=== PATIENT | male | born 1965 | race Caucasian/White ===

== ENCOUNTER 2020-12-03 10:02 | Emergency (ER) | payer SELFPAY ==
--- NOTE | ~2020-12-03 | XR_ITS ---
EXAMINATION: XR KNEE, RIGHT CLINICAL INFORMATION: Pain. Injury. COMPARISON: None TECHNIQUE: Four views of the right knee. FINDINGS: Bone alignment is normal. No fracture or dislocation is seen. There is a small osteophyte at the patellofemoral joint. Joint spaces are otherwise normal. There is a large joint effusion. XR/XR knee RT 4V IMPRESSION: Large joint effusion. No fracture seen.
[2020-12-03 10:54] VITALS: PULSE 79; RESP 16; TEMP 36.1; O2SAT 97; BMI 30.7
--- NOTE | 2020-12-03 11:12 | ED.LOWEXIN ---
HPI - Extremity Injury (Lower) General Chief Complaint: Extremity Injury, Lower Stated Complaint: rt knee pain Time Seen by Provider: 12/03/20 11:12 History of Present Illness HPI Narrative: Patient complains of right knee pain after twisting it when stepping off a truck carrying heavy weight at work, no other injury, no neck pain no back pain no numbness weakness or tingling Related Data Previous Rx's Medication Instructions Recorded ibuprofen 600 mg PO Q6H PRN #20 tab 12/03/20 Allergies Allergy/AdvReac Type Severity Reaction Status Date / Time No Known Allergies Allergy Unverified 04/11/20 15:22 Review of Systems Review of Systems: Positive for right knee pain after injury Negatives are no headache no head injury no neck pain no numbness weakness or tingling no back pain no chest pain no lacerations Yes all other systems are reviewed and are negative [facility] Past Medical History Source: nursing notes reviewed Medical History (Updated 12/04/20 @ 00:01 by Daniella Linton) Hernia, inguinal Social History Social History Advance Directives: No Advance Directives Information Provided: No Physical Exam Vital Signs: Vital Signs: Last Vital Signs Temp 97 F 12/03/20 10:54 Pulse 79 12/03/20 10:54 Resp 16 12/03/20 10:54 Pulse Ox 97 12/03/20 10:54 Body Mass Index 30.7 General appearance no acute distress Head is normocephalic atraumatic Neck supple nontender Respiratory no acute distress The back full range of motion nontender Extremities the right knee had some swelling it had pain and restricted range of motion on flexion it did extend to 180 degrees there is no redness or warmth no obvious large effusion, it is neurovascular intact distal there was tenderness at the joint line the patient could straight leg raise, and there was no obvious ligamentous laxity, Other extremities normal Skin no lacerations Neuro no gross motor or sensory deficit Course Course Course Narrative: X-ray showed a joint effusion but no bony abnormality and patient is discharged to follow with [facility] an orthopedist for work-related knee injury Discharge Plan Discharge Clinical Impression: Right knee sprain, Effusion of knee joint right Patient Disposition: Home, Self-Care Additional Instructions: X-ray showed fluid in the knee joint which can happen after a cartilage injury or for many other reasons Follow with orthopedist, or [facility] for work related injury You may need a referral from the work connection so that it is covered by workman's Comp Return any concerns Prescriptions: New ibuprofen 600 mg tablet 600 mg PO Q6H PRN (Reason: pain) Qty: 20 RF: 0 Referrals: [facility] [Provider Group] - 2 days (Knee injury at work) Lee Ann Lassiter MD [Physician] - 2 days (Knee injury at work) Stand Alone Forms: Work/School Release Interventions: ED Discharge Assessment Last Done: 12/03/20 11:47 Discharge Date/Time: 12/03/20 11:47
== END 2020-12-03 11:47 | disposition home or self-care (01) ==
PROVIDERS: Emergency Provider Emergency Medicine
DX: S83.91XA Sprain of unspecified site of right knee, initial encounter (principal); X50.1XXA Overexertion from prolonged static or awkward postures, initial encounter; Y93.89 Activity, other specified; Y92.812 Truck as the place of occurrence of the external cause; Y99.0 Civilian activity done for income or pay
CPT/HCPCS: 73564; 99282; 99283; 99284

== ENCOUNTER 2021-06-05 12:11 | Emergency (ER) | payer OTHER, SELFPAY ==
[2021-06-05 12:24] VITALS: PULSE 83; RESP 18; TEMP 36.8; O2SAT 97; BMI 31.6
--- NOTE | 2021-06-05 13:42 | ED.GENADULT ---
HPI - General Adult General Chief complaint: General Medical Stated complaint: rash Time Seen by Provider: 06/05/21 13:42 Source: patient Limitations: no limitations History of Present Illness HPI narrative: Patient presents with a blistering red rash to the left lateral aspect of his chest. Patient states started greater than 3 days ago with some burning sensation and slight pain. Patient states it is slightly itchy. Patient states he has never had shingles in the past. Patient does have a history of chickenpox as a child. Patient denies fever chills shortness of breath or other complaints at this time. Patient states he also has a history of rosacea which he uses metronidazole cream for. No other complaints this time Related Data Previous Rx's Medication Instructions Recorded ibuprofen 600 mg tablet 600 mg PO Q6H PRN #20 tab 12/03/20 metronidazole 1 % topical gel 1 appl TOPICAL DAILY PRN #60 g 06/05/21 valacyclovir 1 gram tablet 1,000 mg PO TID 7 Days #21 tab 06/05/21 Allergies Allergy/AdvReac Type Severity Reaction Status Date / Time No Known Allergies Allergy Verified 06/05/21 12:23 Review of Systems Constitutional: Constitutional: Denies chills and Denies fever(s) Cardiovascular: Cardiovascular: Denies chest pain and Denies dyspnea Respiratory: Respiratory: Denies dyspnea Gastrointestinal: Gastrointestinal: Denies nausea and Denies vomiting Musculoskeletal: Musculoskeletal: Denies back pain Integumentary/Breasts: Comments: Left lateral chest rash blistering Endocrine: Endocrine: Reports as per HPI Hematologic/Lymphatic: Hematologic/Lymphatic: Reports no additional hematologic/lymphatic complaints [facility] Past Medical History Medical History Hernia, inguinal Rosacea Social History Social History Advance Directives: No Advance Directives Information Provided: No Physical Exam Vital Signs: Vital Signs: Last Vital Signs Temp 98.2 F 06/05/21 12:24 Pulse 83 06/05/21 12:24 Resp 18 06/05/21 12:24 Pulse Ox 97 06/05/21 12:24 Body Mass Index 31.6 vital signs have been reviewed as normal and appeared to be correct. Blood pressure normal. Heart rate normal. Respiration rate normal. Temperature normal. Oxygen saturation normal. Appearance: Alert. Oriented X3. No acute distress. Head: Normal external exam. Normocephalic. Atraumatic. Eyes: PERRLA. EOMI. Conjunctiva and sclera normal. Eyelids normal. ENT: Pharynx normal. Uvula midline. Moist mucous membranes. Neck: Soft full range of motion, no JVD CVS: Heart regular rate and rhythm no murmurs and rubs Respiratory: Breath sounds are clear to auscultation bilaterally. No accessory muscle use noted. Abdomen: Soft nontender no rebound or guarding positive bowel sounds Back: Full range of motion noted. Skin: Left-sided T8-T9 dermatome on obvious zoster rash noted Extremities: No lower extremity edema. Extremities exhibit normal range of motion. Extremities nontender. Neuro: Oriented X 3. No motor deficit. No sensory deficit. Reflexes normal. Course Course Course Narrative: Contact dermatitis Zoster Cellulitis Viral syndrome Patient's symptoms are consistent with herpes zoster in the T8-9 dermatome on the left side. Greater than 72 hours since onset of symptoms will treat with valacyclovir at this time. Patient also requesting a refill for his metronidazole gel that he uses for rosacea Discharge Plan Discharge Clinical Impression: Herpes zoster Qualifiers: Herpes zoster complications: without complications Qualified Code(s): B02.9 - Zoster without complications Patient Disposition: Home, Self-Care Instructions: Shingles (ED) Prescriptions: New valacyclovir 1 gram tablet 1,000 mg PO TID 7 Days Qty: 21 RF: 0 metronidazole 1 % gel 1 appl topical DAILY PRN (Reason: rash) Qty: 60 RF: 0 No Action ibuprofen 600 mg tablet 600 mg PO Q6H PRN (Reason: pain) Qty: 20 RF: 0
== END 2021-06-05 14:12 | disposition home or self-care (01) ==
PROVIDERS: Emergency Provider Emergency Medicine
DX: B02.9 Zoster without complications (principal)
CPT/HCPCS: 99283

== ENCOUNTER 2023-10-03 23:21 | Emergency (ER) | payer BC, SELFPAY ==
--- NOTE | 2023-10-03 | ECG_ITS ---
Test Reason : CHEST PAIN Blood Pressure : / mmHG Vent. Rate : 116 BPM Atrial Rate : 116 BPM P-R Int : 130 ms QRS Dur : 096 ms QT Int : 330 ms P-R-T Axes : 040 -29 044 degrees QTc Int : 458 ms Sinus tachycardia Nonspecific ST abnormality Abnormal ECG When compared with ECG of 21-JUN-2006 09:02, Vent. rate has increased BY 41 BPM Referred By: Generic ED Physician Electronically Signed By:VICKI MUNOZ MD
--- NOTE | ~2023-10-03 | XR_ITS ---
EXAMINATION: XR CHEST CLINICAL INFORMATION: Shortness of breath COMPARISON: 07/24/2012 TECHNIQUE: Frontal view of the chest was obtained. FINDINGS: The lungs are hypoinflated with bronchovascular crowding limiting evaluation of the lung bases. No definite consolidation is seen in this setting. No evidence of pneumothorax or significant pleural effusion. Cardiomediastinal silhouette appears grossly unremarkable in the setting of low lung volumes. Degenerative changes are noted in the spine. XR/XR chest 1V IMPRESSION: Low lung volumes. No definite consolidation; mild central vascular congestion cannot be excluded.
[2023-10-03 23:35] VITALS: BP 140/103; BP 148/87; PULSE 101; PULSE 117; RESP 16; O2SAT 90; O2SAT 96; BMI 31.6
--- NOTE | 2023-10-03 23:37 | ED_ITS ---
HPI - Medical Clearance General Chief complaint: General Medical Stated complaint: n/v diaphoretic, tachy SOB Time Seen by Provider: 10/03/23 23:26 Source: patient and EMS Mode of arrival: EMS Limitations: no limitations History of Present Illness HPI Narrative: Patient comes to the emergency room via ambulance complaining of nausea and generalized malaise. Patient denies headache, chest pain. Initially, according to the patient he called for shortness of breath. At this time, patient has no shortness of breath. Patient denies any abdominal pain. Patient states that he has generalized malaise. Related Information Previous Rx's Medication Instructions Recorded ibuprofen 600 mg tablet 600 mg PO Q6H PRN pain #20 tabs 12/03/20 metronidazole 1 % topical gel 1 appl topical DAILY PRN rash #60 06/05/21 grams valacyclovir 1 gram tablet 1,000 mg PO TID 7 days #21 tabs 06/05/21 ibuprofen 600 mg tablet 600 mg PO TID PRN fever or pain 10/04/23 #14 tabs ondansetron HCl 4 mg tablet 4 mg PO Q6H PRN nausea and 10/04/23 vomiting #10 tabs Allergies Allergy/AdvReac Type Severity Reaction Status Date / Time No Known Allergies Allergy Verified 10/03/23 23:59 Review of Systems 2 Review of Systems: Constitutional : No Weight loss, No Fever, No Chills, No Night Sweats, complaining of generalized malaise ENT/Mouth : No Hearing loss, No Ear Pain, No Nasal Congestion, No Sinus Pain, No Hoarseness, No sore throat, No Rhinorrhea, No Swallowing Difficulty Eyes: No Eye Pain, No Swelling, No Redness, No Foreign Body, No Discharge, No Vision Changes Cardiovascular : No Chest Pain, complaining of shortness of breath that is now resolved without any medication., No Dyspnea on Exertion, No Orthopnea, No Edema, No Palpitations Respiratory : No Cough, No Sputum, No Wheezing, No Smoke Exposure, No Dyspnea Gastrointestinal : No Nausea, No Vomiting, No Diarrhea, No Constipation, No abdominal Pain, No Hematochezia, No Melena Genitourinary : no irregular bleeding, No Dysuria, No Urinary Frequency, No Hematuria, No Urinary Incontinence, No Urgency, No Flank Pain, No Urinary Flow Changes, No Hesitancy Musculoskeletal : No joint pain, No Myalgias, No Joint Swelling Skin : No Skin Lesions, No rash Neuro : No Weakness, No Numbness, No Paresthesias, No Loss of Consciousness, No Dizziness, No Headache Psych : No Anxiety/Panic, No Depression, No SI/HI/AH/VH, No Social Issues, Heme/Lymph: No Bruising, No Bleeding,No Lymphadenopathy Endocrine : No Polyuria, No Polydipsia, No Temperature Intolerance [facility] Past Medical History Medical History Rosacea Hernia, inguinal Social History Social History Smoked in Last 30 Days: No Use of substances other than those prescribed or required for medical reasons: No Advance Directives: No Advance Directives Information Provided: No Physical Exam 2 Vital Signs: Vital Signs: Last Vital Signs Pulse 101 H 10/03/23 23:35 Resp 16 10/03/23 23:35 BP 140/103 H 10/03/23 23:35 Pulse Ox 96 10/03/23 23:35 BMI result Body Mass Index 31.6 Const: Other: Appearance: Alert. Oriented X3. Seems very anxious Eyes: Pupils equal, round and reactive to light. ENT: Pharynx normal. Neck: Normal inspection. Neck supple. No lymph nodes noted. No crepitus CVS: Normal heart rate and rhythm. Pulses normal. Normal S1 and S2 Respiratory: No respiratory distress. Breath sounds normal. No Wheezing. No rales hyperventilating, oxygen saturation 96% on room air Abdomen: Soft and nontender. No rigidity. No distention. Skin: Skin warm and dry. Normal skin color. Normal skin turgor. Extremities: No lower extremity edema. No Lacerations. No Rash Neuro: Oriented X 3. No motor deficit. No sensory deficit. Moving all extremities. No slurred speech. CN 2 through 12 grossly intact Psych: calm, cooperative, very anxious Course Course Course Narrative: -initially when patient came in, oxygen saturation was read as 90%. However, patient was moving a lot, twisting and turning in his bed. It was bad waveform. Once patient has settled down, patient's oxygen saturation is 96% on room air, respiratory rate 21, normal blood pressure and heart rate. -all of patient's labs and imaging pending -patient receiving IV fluids, Zofran Medications Administered Discontinued Medications Generic Name Dose Route Start Last Admin Trade Name Meseret PRN Reason Stop Dose Admin Sodium Chloride 1,000 mls @ 999 mls/hr 10/03/23 23:34 10/04/23 00:45 Ns IVCONT 10/04/23 00:34 Infused .Q1H1M ONE Infusion Ondansetron HCl 4 mg 10/03/23 23:34 10/03/23 23:45 Ondansetron Hcl 4 Mg/2 Ml Vial IVPUSH 10/03/23 23:35 4 mg ONCE ONE Administration Medical Decision Making Medical Decision Making [facility] Narrative: My interpretation self lab, hematology shows a white blood cell count of 15, likely reactive leukocytosis. Chemistries at baseline, troponin negative, lipase negative, EtOH negative. -after IV fluids and Zofran, patient feeling much better, urinalysis negative for UTI or drugs -patient likely having a viral syndrome -at this time, patient's vitals completely stable and patient feeling much better Differential Diagnosis Differential Diagnoses: The differential diagnosis associated with the presentation includes (Viral syndrome, COVID, influenza, RSV, UTI) Admission/Observation Consideration of admission/observation: Escalation of care including admission/observation considered (Urine patient's initial presentation, admission was considered) Lab Data [facility] Lab Attestation statement: I reviewed the patient's lab results. 10/03/23 23:34 10/03/23 23:33 Labs: Lab Results 10/03/23 10/03/23 10/04/23 Range/Units 23:33 23:34 02:11 WBC 15.0 H (4.8-10.8) X10*3/uL RBC 5.92 H (4.60-5.80) X10*6/uL Hgb 16.4 (14.0-18.0) g/dl Hct 48.5 (42.0-52.0) % MCV 81.9 (80.0-98.0) fL MCH 27.7 (27.0-33.0) pg MCHC 33.8 (31.0-36.0) g/dl RDW 13.2 (11.0-16.0) % Plt Count 153 L (160-400) X10*3/uL MPV 11.9 (9.4-12.4) fL Immature Gran % (Auto) 0.5 H (0.0-0.4) % Neut % (Auto) 70.2 (45-73) % Lymph % (Auto) 19.9 L (20-40) % [place] % (Auto) 6.9 (2-11) % Eos % (Auto) 1.9 (0-4) % Baso % (Auto) 0.6 (0-2) % Lymph # (Auto) 3.0 (1.2-4.9) X10*3/uL [place] # (Auto) 1.0 (0.1-1.2) X10*3/uL Eos # (Auto) 0.3 (0.0-0.4) X10*3/uL Baso # (Auto) 0.1 (0.0-0.2) X10*3/uL Abs Immat Gran (auto) 0.08 H (0.00-0.03) X10*3/uL Absolute Neuts (auto) 10.5 H (2.0-8.3) x10*3/uL Absolute Nucleated RBC 0.000 (0.0-0.012) X10*3/uL Nucleated RBC % (auto) 0.0 (0.0-0.2) /100WBC Sodium 143 (135-145) mmol/L Potassium 3.5 (3.3-5.1) mmol/L Chloride 108 (96-108) mmol/L Carbon Dioxide 25 (22-29) mmol/L Anion Gap 14 (12-20) BUN 28 H (9-16) mg/dL Creatinine 1.38 (0.5-1.4) mg/dL Estim Creat Clear Calc 58.1 Estimated GFR 53 Random Glucose 192 H (60-115) mg/dL Calcium 9.2 (8.4-10.2) mg/dL Total Bilirubin 0.3 (0.0-1.0) mg/dL AST 27 (5-37) U/L ALT 45 H (0-40) U/L Alkaline Phosphatase 86 (39-117) U/L Troponin I High Sens 3.2 (<3.5-35.0) ng/L Total Protein 8.1 H (6.5-8.0) g/dL Albumin 4.2 (3.5-5.0) g/dL Lipase 39 (8-78) U/L Urine Color Yellow Urine Appearance Clear Urine pH 7.0 (5.0-9.0) Ur Specific [place] 1.020 (1.005-1.025) Urine Protein Trace (Neg-Trace) mg/dL Urine Glucose (UA) 100 H (Negative) mg/dL Urine Ketones Negative (Negative) mg/dL Urine Blood Negative (Negative) Urine Nitrite Negative (Negative) Ur Leukocyte Esterase Negative (Negative) Urine Opiates Screen Not Detected (Not Detect) Urine Fentanyl Screen Not Detected (Not Detect) Ur Barbiturates Screen Not Detected (Not Detect) Ur Phencyclidine Scrn Not Detected (Not Detect) Ur Amphetamines Screen Not Detected (Not Detect) U Benzodiazepines Scrn Not Detected (Not Detect) Urine Cocaine Screen Not Detected (Not Detect) U Marijuana (THC) Screen Not Detected (Not Detect) Ethyl Alcohol < 10 mg/dL Influenza Type A (PCR) NEGATIVE (Negative) Influenza Type B (PCR) NEGATIVE (Negative) RSV RNA Qual (PCR) NEGATIVE (Negative) SARS-CoV-2 RNA (RT-PCR) NEGATIVE (Negative) Critical Care Time Critical Care Time Critical Care Time: Yes Total Critical Care Time: 60 Attestation: I have personally provided critical care time. Time includes review of lab data, radiology results, discussion with consultants, and monitoring for potential decompensation. Intervention performed as documented. Discharge Plan Discharge Clinical Impression: Acute viral syndrome Patient Disposition: Home, Self-Care Instructions: Viral Syndrome (ED) Additional Instructions: Please follow-up with your primary care physician tomorrow. If you have any worsening or new symptoms, please return to the emergency room or call 911 Prescriptions: New ibuprofen 600 mg tablet 600 mg PO TID PRN (Reason: fever or pain) Qty: 14 0RF ondansetron HCl 4 mg tablet 4 mg PO Q6H PRN (Reason: nausea and vomiting) Qty: 10 0RF No Action ibuprofen 600 mg tablet 600 mg PO Q6H PRN (Reason: pain) Qty: 20 0RF valacyclovir 1 gram tablet 1,000 mg PO TID 7 Days Qty: 21 0RF metronidazole 1 % gel 1 appl topical DAILY PRN (Reason: rash) Qty: 60 0RF Stand Alone Forms: Work/School Release
[2023-10-03] MEDS: 0.9 % Sodium Chloride 1,000 ML 999 ML IVCONT (23:45)
[2023-10-03] MEDS: ondansetron HCL 4 MG/2 ML VIAL IVPUSH (23:45)
[2023-10-03 23:46] LABS: MANUAL DIFF FLAG NO
[2023-10-03 23:48] LABS: Basophils Absolute Auto 0.1 X10*3/uL (0.0-0.2); Basophils Percent Auto 0.6 % (0-2); Eosinophils Absolute Auto 0.3 X10*3/uL (0.0-0.4); Eosinophils Percent Auto 1.9 % (0-4); Hematocrit 48.5 % (42.0-52.0); Hemoglobin 16.4 g/dl (14.0-18.0); Imm Gran Abs Auto 0.08 X10*3/uL (0.00-0.03); Imm Gran Pct Auto 0.5 % (0.0-0.4); Lymphocytes Percent Auto 19.9 % (20-40); Mean Corpuscular HGB Conc 33.8 g/dl (31.0-36.0); Mean Corpuscular Hemoglobin 27.7 pg (27.0-33.0); Mean Corpuscular Volume 81.9 fL (80.0-98.0); Mean Platelet Volume 11.9 fL (9.4-12.4); Monocytes Percent Auto 6.9 % (2-11); Neutrophils Absolute Auto 10.5 x10*3/uL (2.0-8.3); Neutrophils Percent Auto 70.2 % (45-73); Platelet Count 153 X10*3/uL (160-400); Red Blood Count 5.92 X10*6/uL (4.60-5.80); Red Cell Distribution Width 13.2 % (11.0-16.0)
[2023-10-04 00:09] LABS: Troponin-I High Sensitivity 3.2 ng/L (<3.5-35.0)
[2023-10-04 00:10] LABS: Alanine Aminotransferase 45 U/L (0-40); Albumin Level 4.2 g/dL (3.5-5.0); Alkaline Phosphatase 86 U/L (39-117); Anion Gap 14 (12-20); Aspartate Amino Transferase 27 U/L (5-37); Bilirubin Total 0.3 mg/dL (0.0-1.0); Blood Urea Nitrogen 28 mg/dL (9-16); Calcium 9.2 mg/dL (8.4-10.2); Carbon Dioxide 25 mmol/L (22-29); Chloride 108 mmol/L (96-108); Creatinine Clr Calc Pharmacy 58.1; Estimated Glomerular Filt Rate 53; Ethanol < 10 mg/dL; Glucose Random 192 mg/dL (60-115); Lipase 39 U/L (8-78); Potassium 3.5 mmol/L (3.3-5.1); Sodium 143 mmol/L (135-145); Total Protein 8.1 g/dL (6.5-8.0)
[2023-10-04 00:36] LABS: Influenza A PCR NEGATIVE (Negative); Influenza B PCR NEGATIVE (Negative); Resp Syncy Virus RNA Qual PCR NEGATIVE (Negative); SARS COV2 PCR INHOUSE NEGATIVE (Negative)
[2023-10-04 02:17] LABS: Appearance Urine Clear; Color Urine Yellow; Glucose Urine UA 100 mg/dL (Negative); Leukocyte Esterase Urine Negative (Negative); Nitrite Urine Negative (Negative); Urine Blood Negative (Negative); Urine Ketones Negative (Negative); Urine Protein Trace mg/dL (Neg-Trace)
[2023-10-04 02:23] LABS: Amphetamine Screen Urine Not Detected (Not Detect); Barbiturates, Urine Not Detected (Not Detect); Benzodiazepines Screen Urine Not Detected (Not Detect); Cannabinoid Screen Urine Not Detected (Not Detect); Cocaine Screen Urine Not Detected (Not Detect); Fentanyl, urine Not Detected (Not Detect); Opiate Screen Urine Not Detected (Not Detect); Phencyclidine Screen Urine Not Detected (Not Detect)
[2023-10-04 02:39] VITALS: BP 130/69; PULSE 88; RESP 16; TEMP 36.5; O2SAT 99
== END 2023-10-04 02:43 | disposition home or self-care (01) ==
PROVIDERS: Emergency Provider Emergency Medicine
DX: B34.9 Viral infection, unspecified (principal); Z11.52 Encounter for screening for COVID-19; Z20.828 Contact with and (suspected) exposure to other viral communicable diseases
CPT/HCPCS: 0241U; 36415; 71045; 80053; 80307; 81003; 83690; 84484; 85025; 93005; 96361; 96374; 99284; 99285; J2405

== ENCOUNTER → 2023-10-03 23:25 | Outpatient (BNV) | payer SELFPAY | PROVIDERS: Emergency Provider Emergency Medicine; Visit Provider Internal Medicine Cardiovascular Disease | DX: R00.0 Tachycardia, unspecified (principal) | CPT/HCPCS: 93010 ==

== ENCOUNTER 2024-02-11 08:43 | Outpatient (AMB) | payer BC, SELFPAY ==
--- NOTE | 2024-02-11 08:49 | A.OFFPC_ITS ---
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 Intake Note: patient here for new patient visit., Pre Press Proofer Required: No Allergies No Known Allergies Allergy (Verified 02/11/24 09:05) Medication List - Last Reconciled 02/11/24 by William Razo CNP ibuprofen 600 mg PO Q6H PRN metronidazole 1% 1 appl topical DAILY PRN Tobacco use date assessed: 02/11/24 Dental Screening Dental Screen Date: 02/11/24 Did you have a dental visit in the last 12 months?: Yes Did you have a dental problem in the last 6 months where you did not have access to dental care?: No Was dental information given to patient?: Patient has dentist HPI HPI Comments History of Present Illness Details New patient, accompanied by his girlfriend Prior PCP:?He never had a PCP. He was accessing urgent care clinics and ED for medical care Last office visit/CPE: Acute issue(s): Reports urinary urgency and hesitancy for the past 4 years. His symptoms have progressively gotten worse. No burning, pain, or discharge with urination. He endorses adequate hydration On metronidazole cream as needed for rosacea He notes that he generally eats healthy and sleeps well. He does physical exercise routinely PMHx: Rosacea (last outbreak was 5-6 years ago) SurgHx: Left inguinal hernia repair, lipoma removal to mid upper back FHx: Mom: PGF alcohol abuse, liver disease r/t alcohol abuse SocHx: Nonsmoker. Does not drink alcohol. 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 1. Little interest or pleasure in doing things: not at all 2. Feeling down, depressed, or hopeless: not at all 3. Trouble falling or staying asleep, or sleeping too much: not at all 4. Feeling tired or having little energy: not at all 5. Poor appetite or overeating: not at all 6. Feeling bad about yourself - or that you are a failure or have let yourself or your family down: not at all 7. Trouble concentrating on things, such as reading the newspaper or watching television: not at all 8. Moving or speaking so slowly that other people could have noticed. Or the opposite - being so fidgety or restless that you have been moving around a lot more than usual: not at all 9. Thoughts that you would be better off or of hurting yourself in some way: not at all Total score: 0 Depression Screening Interpretation: Negative Depression Screening Done: Yes 78678 - PHQ-9 Billing: Yes Source: Developed by Drs. Chandler Wayne, Margo Cannon, Jeff Valverde and colleagues, with an educational sophia from [employer]. Thrive Questionnaire Date Thrive assessed: 02/11/24 I am a: Patient What is your living situation today?: I have a steady place to live Within the past 12 months, did the food you bought not last and you didn't have the money to get more?: Never true Within the past 12 months, did you worry whether your food would run out before you got money to buy more?: Never true Do you have trouble paying for medicines?: Yes Do you have trouble getting transportation to medical appointments?: No Do you have trouble paying your heating and electricity bill?: No Do you have trouble taking care of your child, family member or friend?: No Do you have trouble with day-to-day activities such as bathing, preparing meals, shopping, managing finances, etc.?: No Are you currently unemployed and looking for a job?: No Are you interested in more education?: No Please select the resources that you would like help with: None Currently or been in a relationship where the following occur: No concerns reported THRIVE Score: 0 AUDIT C Alcohol Use Questionnaire (AUDIT-C) 1. How often do you have a drink containing alcohol?: Never Total Score: 0 DANNY-7 AMB Questionnaire DANNY-7 Date DANNY - 7 assessed: 02/11/24 Feeling nervous, anxious, or on edge: 0 = Not at all Not being able to stop or control worryin = Not at all Worrying too much about different things: 0 = Not at all Trouble relaxin = Not at all Being so restless that it is hard to sit still: 0 = Not at all Becoming easily annoyed or irritable: 0 = Not at all Feeling afraid as if something awful might happen: 0 = Not at all Total DANNY-7 score (0-4 normal; 5-9 mild; 10-14 moderate; 15-21 severe): 0 Source: Developed by Drs. Chandler Wayne, Margo Cannon, Jeff Valverde and colleagues, with an educational sophia from [employer]. DANNY-7 Assessment Billing DANNY-7 Assessment Tool: DANNY-7 Assessment 54588 Review of Systems Const Details: Denies chills, Denies fatigue, Denies fever(s), Denies headache(s) and Denies weakness HEENT Denies change in vision, Denies dizziness, Denies headache(s), Denies hearing loss, Denies nasal congestion, Denies sinus pain, Denies sinus pressure and Denies sore throat Card Denies chest pain, Denies lightheadedness, Denies dyspnea and Denies other (palpitations) Resp Denies cough, Denies dyspnea and Denies wheezing GI Denies abdominal pain, Denies melena, Denies hematochezia, Denies change in bowel habits, Denies dyspepsia and Denies nausea Denies hematuria and Denies dysuria Musc Denies abnormal gait, Denies myalgias, Denies arthralgias, Denies numbness and Denies tingling Skin/Breast Denies rash, Denies unusual bruising and Denies wounds Neuro Denies abnormal gait, Denies dizziness, Denies headache(s), Denies memory loss, Denies numbness, Denies Sensory deficit (Neuro), Denies tingling and Denies weakness Psych Denies anxiety, Denies depression and Denies memory loss Endo Denies cold intolerance, Denies fatigue, Denies heat intolerance, Denies polydipsia and Denies polyuria Dominick/Lymph Denies easy bleeding and Denies easy bruising Aller/Immun Denies wheezing Physical exam (Primary Care) Vital Signs: Last Vital Signs Temp 97.3 F 02/11/24 08:56 Pulse 83 02/11/24 08:56 Resp 16 02/11/24 08:56 BP 128/74 02/11/24 08:56 Pulse Ox 97 02/11/24 08:56 Oxygen Delivery Method Room Air 02/11/24 08:56 BMI result Body Mass Index 33.3 Tobacco/Smoking Status: Tobacco use Status Tobacco use date assessed 02/11/24 02/11/24 08:55 Patient Tobacco Use Status Never used Tobacco 02/11/24 08:55 e-Cigarette/Vaping Use Never Used 02/11/24 08:55 PHQ-9: PHQ-9 Score PHQ-9: Total score 0 02/11/24 09:01 Depression Screening Interpretation: Negative Thrive Assessment: Date of Thrive Assessment Date Thrive assessed 02/11/24 02/11/24 09:01 Currently or been in a relationship where the following occur: No concerns reported Const Other: General: no acute distress, well developed, alert and awake Nutritional Appearance: well nourished Orientation/consciousness: patient oriented x3 HENMT Head: Yes normocephalic and Yes atraumatic Ears: hearing grossly normal bilaterally and TM's normal bilaterally General nose exam: Normal external nose present and Normal nares present Mouth: Normal oral and palatal mucosa present and moist mucous membranes Teeth and gingiva: dentition normal Throat: Yes oropharynx normal Eyes Pupils: Equal, round and reactive pupils present and Pupil accommodation reflex normal EOM: EOMs intact bilaterally Neck Neck: Yes normal visual inspection, Yes no lymphadenopathy and Yes trachea midline Thyroid: Thyroid normal Carotids: no bruits Lymphatic: no lymphadenopathy noted Chest Chest palpation & inspection: normal inspection of the chest Resp Effort & Inspection: normal respiratory effort Auscultation: clear to auscultation bilaterally Cardio Rate: regular rate Rhythm: regular rhythm Heart sounds: S1 normal heart sound present, S2 normal heart sound present, no gallops, no murmurs and no rubs Bruits: no abdominal aortic bruits and no carotid bruits GI Palpation (GI): No Abdominal aortic bruit present, Soft to palpation, nontender, No hepatosplenomegaly present and No Rebound tenderness present Auscultation: normal bowel sounds General: Yes no CVA tenderness Back/Spine/Pelvis Back: no CVA tenderness Cervical Spine: cervical ROM normal and No Cervical spine tenderness Thoracic/Lumbar Spine: thoraco-lumbar ROM normal, No pain with thoraco-lumbar ROM, No thoracic spinal tenderness and No lumbar spinal tenderness Skin General: warm and dry. Normal skin color. Normal skin turgor Lesions: no lesions Rashes: no rashes Trauma: no lacerations or abrasions Wounds: no wounds Nails: normal Neuro General: patient oriented x3, gait normal and CN's II-XI intact bilaterally Cranial nerves: Yes Equal, round and reactive pupils present Cognition (Neuro): normal cognition Gait exam (Neuro): Normal gait present Motor exam (neuro): 5/5 motor strength present throughout Sensory Exam: No Sensory deficit (Neuro) Deep tendon reflexes (DTR's): Right patellar reflex intensity grade: 2+ and Left patellar reflex intensity grade: 2+ Extrem General: Yes normal to inspection, No edema and No calf tenderness Psych Appearance: grossly normal Affect: normal affect Attitude: cooperative Thought process: Normal thought process present Assessment and Plan Assessment & Plan (1) Normal physical examination, routine: Code(s): Z00.00 - Encounter for general adult medical examination without abnormal findings Plan: No significant physical restrictions or limitations noted Healthy diet and routine exercise encouraged Advised to get lab work done and follow-up for telehealth visit in 2 weeks for labs review Return sooner with symptoms or concerns Verbalized understanding and agreed with the treatment plan (2) Urinary urgency: Code(s): R39.15 - Urgency of urination Plan: Urinary urgency and hesitancy x 4 years, progressively gotten worse. No burning, pain, or discharge with urination Likely BPH Will check prostate levels Referred to Urology Follow-up with worsening or new symptoms Verbalized understanding and agreed with the plan (3) Urinary hesitancy: Code(s): R39.11 - Hesitancy of micturition Plan: As above (4) Colon cancer screening: Code(s): Z12.11 - Encounter for screening for malignant neoplasm of colon Plan: He has never had a colonoscopy done Ref[place] [facility] for a colonoscopy (5) Vaccine counseling: Code(s): Z71.85 - Encounter for immunization safety counseling Plan: He has never been vaccinated for shingles Instructed on importance of vaccinations and encouraged to get vaccinated for shingles. He may request the vaccines from his local pharmacy Verbalized understanding and agreed with the plan (6) Laboratory tests ordered as part of a complete physical exam (CPE): Code(s): Z00.00 - Encounter for general adult medical examination without abnormal findings Plan: Fasting labs ordered as part of a complete physical exam. Advised to fast for at least 10 hours before getting labs drawn. May drink water Verbalized understanding and agreed with treatment plan. Orders: Orders Lipid Panel Today Z00.00 - Encounter for general adult medical examination without abnormal findings UA CC w/rflx Micro + Cult Today Z00.00 - Encounter for general adult medical examination without abnormal findings PSA, Ultra Sensitive Today Z00.00 - Encounter for general adult medical examination without abnormal findings Microalbumin, Random (w Creat) Today Z00.00 - Encounter for general adult medical examination without abnormal findings Complete Blood Count Auto Diff Today Z00.00 - Encounter for general adult medical examination without abnormal findings Comprehensive Brent. Panel Fast Today Z00.00 - Encounter for general adult medical examination without abnormal findings TSH reflex Free T4 Today Z00.00 - Encounter for general adult medical examination without abnormal findings Referrals Urology Referral R39.11 - Hesitancy of micturition, R39.15 - Urgency of urination Gastroenterology Referral Z12.11 - Encounter for screening for malignant neoplasm of colon Medications: Discontinued valacyclovir Discontinued Reason: Stopped on Transfer 1,000 mg PO TID 7 days 21 tabs 0RF ibuprofen Discontinued Reason: Patient Completed Course 600 mg PO TID PRN 14 tabs 0RF fever or pain ondansetron HCl Discontinued Reason: Patient no longer taking 4 mg PO Q6H PRN 10 tabs 0RF nausea and vomiting Coding Level of Care Code New Pt Level 4 (33509) New Pt Prev Care 40-64y(78752) Diagnoses Normal physical examination, routine Z00.00 Urinary urgency R39.15 Urinary hesitancy R39.11 Colon cancer screening Z12.11 Vaccine counseling Z71.85 Laboratory tests ordered as part of a complete physical exam (CPE) Z00.00 Additional Codes DANNY-7 Assessment Billing - DANNY-7 Assessment Tool: DANNY-7 Assessment 67309 ([id number])
[2024-02-11 08:56] VITALS: BP 128/74; PULSE 83; RESP 16; TEMP 36.3; O2SAT 97; BMI 33.3
== END 2024-02-11 09:24 | disposition home or self-care (01) ==
PROVIDERS: Visit Provider Nurse Practitioner Family
DX: Z00.00 Encounter for general adult medical examination without abnormal findings (principal); R39.15 Urgency of urination; R39.11 Hesitancy of micturition; Z12.11 Encounter for screening for malignant neoplasm of colon; Z71.85 Encounter for immunization safety counseling
CPT/HCPCS: 99386

== ENCOUNTER 2024-02-12 10:41 | Outpatient (REF) | payer BC, SELFPAY ==
[2024-02-12 11:04] LABS: Basophils Absolute Auto 0.1 X10*3/uL (0.0-0.2); Basophils Percent Auto 0.6 % (0-2); Eosinophils Absolute Auto 0.2 X10*3/uL (0.0-0.4); Eosinophils Percent Auto 2.3 % (0-4); Hematocrit 48.2 % (42.0-52.0); Hemoglobin 16.5 g/dl (14.0-18.0); Imm Gran Abs Auto 0.03 X10*3/uL (0.00-0.03); Imm Gran Pct Auto 0.3 % (0.0-0.4); Lymphocytes Absolute Auto 2.2 X10*3/uL (1.2-4.9); Lymphocytes Percent Auto 23.5 % (20-40); MANUAL DIFF FLAG SCAN; Mean Corpuscular HGB Conc 34.2 g/dl (31.0-36.0); Mean Corpuscular Hemoglobin 28.1 pg (27.0-33.0); Mean Platelet Volume 11.2 fL (9.4-12.4); Monocytes Absolute Auto 0.7 X10*3/uL (0.1-1.2); Monocytes Percent Auto 7.3 % (2-11); Neutrophils Absolute Auto 6.2 x10*3/uL (2.0-8.3); Platelet Count 149 X10*3/uL (160-400); Red Blood Count 5.88 X10*6/uL (4.60-5.80); Red Cell Distribution Width 13.3 % (11.0-16.0); SCAN SMEAR FLAG 1; White Blood Count 9.5 X10*3/uL (4.8-10.8)
[2024-02-12 11:17] LABS: Appearance Urine Clear; Color Urine Yellow; Glucose Urine UA Negative (Negative); Leukocyte Esterase Urine Negative (Negative); Nitrite Urine Negative (Negative); Specific Gravity - Urine 1.025 (1.005-1.025); Urine Blood Negative (Negative); Urine Ketones Negative (Negative); Urine Protein Trace mg/dL (Neg-Trace)
[2024-02-12 11:50] LABS: SLIDE REVIEW VERIFIED
[2024-02-12 11:58] LABS: Creatinine Urine 192.61 mg/dL; Microalbum/Creatinine Ratio Ur 19.2 ug/mg cr (<30)
[2024-02-12 12:02] LABS: Alanine Aminotransferase 36 U/L (0-40); Albumin Level 4.2 g/dL (3.5-5.0); Alkaline Phosphatase 83 U/L (39-117); Anion Gap 12 (12-20); Aspartate Amino Transferase 21 U/L (5-37); Bilirubin Total 0.8 mg/dL (0.0-1.0); Blood Urea Nitrogen 24 mg/dL (9-16); Calcium 9.3 mg/dL (8.4-10.2); Carbon Dioxide 25 mmol/L (22-29); Chloride 108 mmol/L (96-108); Cholesterol 143 mg/dL (<200); Estimated Glomerular Filt Rate > 60; Glucose Fasting 101 mg/dL (60-99); HDL Cholesterol 33 mg/dL (>40); LDL Cholesterol Calculated 93 mg/dL (<100); Potassium 3.9 mmol/L (3.3-5.1); Sodium 141 mmol/L (135-145); Total Protein 7.7 g/dL (6.5-8.0); Triglycerides 89 mg/dL (<150)
[2024-02-12 12:07] LABS: TSH reflex Free T4 0.65 uIU/mL (0.32-4.0)
[2024-02-22 23:38] LABS: PSA, Ultra Sensitive 2.86 ng/mL
== END 2024-02-12 10:42 | disposition home or self-care (01) ==
LOC: HO.LAB 10:41
PROVIDERS: PCP Nurse Practitioner Family; Visit Provider Nurse Practitioner Family
DX: Z00.00 Encounter for general adult medical examination without abnormal findings (principal); Z12.5 Encounter for screening for malignant neoplasm of prostate; Z13.89 Encounter for screening for other disorder
CPT/HCPCS: 36415; 80053; 80061; 81003; 82043; 82570; 84153; 84443; 85025

== ENCOUNTER → 2024-02-25 15:01 | Outpatient (AMB) | payer BC, SELFPAY ==
--- NOTE | 2024-02-25 14:56 | A.OFFPC_ITS ---
Intake Visit Reasons: 2 wks labs review Intake Note: Patient is here to follow up on lab results. 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: Not Required per policy Accompanied by: Self / Same As Patient Allergies No Known Allergies Allergy (Verified 02/25/24 15:02) Tobacco use date assessed: 02/25/24 Dental Screening Dental Screen Date: 02/11/24 HPI HPI Comments History of Present Illness Details 59-year-old male presents for a teleheal th visit for review of recent lab work He offers no complaints and denies acute symptoms at this time [facility] Medical History (Updated 02/25/24 @ 14:58 by William Razo CNP) Rosacea Hernia, inguinal Surgical History (Updated 02/25/24 @ 15:03 by Regina Barrientos Neida) History of hernia surgery Family History (Updated 02/11/24 @ 08:55 by Clarissa Byrd) Paternal Grandfather Alcohol abuse Social History Housing: Apartment Patient Tobacco Use Status: Never used Tobacco e-Cigarette/Vaping Use: Never Used Second Hand Smoke Exposure: No service: No Current occupational status: employed Current occupation: [employer] (formerly [employer] Current occupational exposures/hazards: No Cognitive needs: No Hearing needs: No Vision needs: Yes Questionnaire Thrive Questionnaire Date Thrive assessed: 02/11/24 DANNY-7 AMB Questionnaire DANNY-7 Date DANNY - 7 assessed: 02/11/24 Source: Developed by Drs. Chandler Wayne, Margo Cannon, Jeff Valverde and colleagues, with an educational sophia from [employer]. Review of Systems Const Details: Const Denies chills, Denies fatigue, Denies fever(s), Denies headache(s) and Denies weakness ENT Denies dizziness and Denies headache(s) Card Denies chest pain, Denies lightheadedness, Denies dyspnea and Denies other (Palpitations) Resp Denies cough, Denies dyspnea, Denies wheezing and Denies other ( shortness of breath) GI Denies abdominal pain, Denies melena, Denies hematochezia, Denies change in bowel habits, Denies dyspepsia and Denies nausea Denies hematuria and Denies dysuria Musc Denies abnormal gait, Denies myalgias, Denies arthralgias, Denies numbness and Denies tingling Skin/Breast Denies rash, Denies unusual bruising and Denies wounds Neuro Denies abnormal gait, Denies dizziness, Denies headache(s), Denies memory loss, Denies numbness, Denies Sensory deficit (Neuro), Denies tingling and Denies weakness Psych Denies anxiety, Denies depression, Denies memory loss Endo Denies cold intolerance, Denies fatigue, Denies heat intolerance, Denies polydipsia and Denies polyuria Aller/Immun Denies wheezing Physical exam (Primary Care) Tobacco/Smoking Status: Tobacco use Status Tobacco use date assessed 02/11/24 02/25/24 14:57 Patient Tobacco Use Status Never used Tobacco 02/25/24 14:57 e-Cigarette/Vaping Use Never Used 02/25/24 14:57 Thrive Assessment: Date of Thrive Assessment Date Thrive assessed 02/11/24 02/25/24 14:57 Const Other: Telehealth visit. No physical exam Telehealth Telehealth Telehealth Platform: Telephone Location of provider rendering services: practice address Location of patient: address on file Patient Identification confirmed using: Name, : Yes Telehealth method: voice only Patient verbally consented to treatment: Yes Patient verbally consented to billing insurance company: Yes Patient informed of any privacy concerns related to visit: Yes Assessment and Plan Assessment & Plan (1) Elevated fasting glucose: Code(s): R73.01 - Impaired fasting glucose Plan: Recent fasting glucose is slightly elevated, 101 Will repeat fasting glucose and make changes as needed Advised to get fasting blood work done and follow-up in 2-4 weeks for telehealth visit for labs review Return sooner with symptoms or concerns Verbalized understanding and agreed with treatment plan (2) 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 Plan: Recent HDL level is low, 33 Advised to limit foods high in saturated fat and avoid foods high in trans fat Routine exercise encouraged Verbalized understanding and agreed with the treatment plan (3) Thrombocytopenia: Code(s): D69.6 - Thrombocytopenia, unspecified Plan: CBC is unremarkable except for slightly low platelet count, 149, which is equivocal No bleeding or cardiovascular issues Will monitor periodically Orders: Orders Glucose Fasting Today R73.01 - Impaired fasting glucose Coding Level of Care Code Tele Est Pt Level 3 (30027) Diagnoses Elevated fasting glucose R73.01 Low HDL (under 40) E78.6 Thrombocytopenia D69.6 Time Spent (min) 10
== END ==
LOC: HO.HMGFM 15:01
PROVIDERS: PCP Nurse Practitioner Family; Visit Provider Nurse Practitioner Family
DX: R73.01 Impaired fasting glucose (principal); E78.6 Lipoprotein deficiency; D69.6 Thrombocytopenia, unspecified
CPT/HCPCS: 99441

== ENCOUNTER 2024-04-05 07:58 | Outpatient (REF) | payer BC, SELFPAY ==
[2024-04-05 09:45] LABS: Glucose Fasting 104 mg/dL (60-99)
== END 2024-04-05 07:59 | disposition home or self-care (01) ==
LOC: HO.LAB 07:58
PROVIDERS: PCP Nurse Practitioner Family; Visit Provider Nurse Practitioner Family
DX: R73.01 Impaired fasting glucose (principal)
CPT/HCPCS: 36415; 82947

== ENCOUNTER 2024-04-05 10:18 | Outpatient (AMB) | payer BC, SELFPAY ==
--- NOTE | 2024-04-05 10:46 | A.OFFVIS_ITS ---
Intake Visit Reasons: urinary urgency/urinary hesitancy Intake Note: New patient is present for Urianry Frequency/Hesitancy/Urgency Patient has tried OTC medications that did not help. 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 He is a patient of Dr. Razo. 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 PSA 04/13 2.3 PFSH Medical History Rosacea Hernia, inguinal Surgical History History of hernia surgery Family History Paternal Grandfather Alcohol abuse Social History Housing: Apartment Patient Tobacco Use Status: Never used Tobacco e-Cigarette/Vaping Use: Never Used Second Hand Smoke Exposure: No service: No Current occupational status: employed 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 Current occupational exposures/hazards: No Cognitive needs: No Hearing needs: No Vision needs: Yes Review of Systems Const Denies chills and Denies fever(s) Card Reports no additional complaints and Denies syncope Resp Denies cough GI Denies abdominal pain and Denies heartburn Reports as per HPI and Denies change in libido Neuro Denies syncope Psych Denies change in libido Endo Denies change in libido Physical Exam Const General: cooperative, healthy appearing, comfortable and no acute distress Orientation/consciousness: patient oriented x3 HEENT Face and sinus: Yes normal facial exam Mouth: moist mucous membranes Neck Neck: Yes normal visual inspection, Yes full ROM and Yes trachea midline Chest Chest palpation & inspection: normal inspection of the chest Resp Effort & Inspection: normal respiratory effort, able to speak in complete sentences and no respiratory distress GI Inspection: Yes normal to inspection Back/Spine/Pelvis Cervical Spine: normal cervical lordosis Thoracic/Lumbar Spine: thoracic and lumbar spine normal to inspection Skin General skin exam: no rashes or lesions noted Neuro General: patient oriented x3, gait normal, tone normal and moves all extremities Extrem General: Yes normal to inspection and Yes capillary refill normal Assessment & Plan Assessment & Plan (1) Urinary urgency: Code(s): R39.15 - Urgency of urination Category: Medical (2) Urinary hesitancy: Code(s): R39.11 - Hesitancy of micturition Category: Medical Plan Trial tadalafil Three-month follow-up Orders: Orders AMB Post Void Residual by ultrasound Today R39.11 - Hesitancy of micturition Medications: New tadalafil 5 mg PO DAILY 90 tabs 0RF 90 days R39.15 - Urgency of urination Patient Instructions: Imaging studies, laboratory and physical exam results were discussed and reviewed in detail. No major barriers to patient understanding were identified. An opportunity to ask questions regarding the treatment plan was provided. All questions were answered. The patient expressed understanding and agreement with the above treatment plan. The patient is aware they should contact our office by phone for worsening of their current condition or the appearance of new urologic symptoms. Compliance is encouraged with any medications and followup testing that is ordered. It is a privilege to participate in the urologic care of your patient. If you have any questions or concerns regarding treatment for the above conditions, or other urologic issues, please do not hesitate to contact me. The office telephone contact is [phone]. This note is constructed using voice recognition software. While every effort has been made to ensure accuracy percussion welding machine operator errors may have been included. Yours sincerely, Dr Tavon Rodriguez MD, [facility] - Urology Providers of Expert, Compassionate Care for the Genitourinary System Coding Level of Care Code New Pt Level 4 (69491) Diagnoses Urinary urgency R39.15 Urinary hesitancy R39.11
== END 2024-04-05 11:47 | disposition home or self-care (01) ==
PROVIDERS: PCP Nurse Practitioner Family; Visit Provider Urology
DX: R39.15 Urgency of urination (principal); R39.11 Hesitancy of micturition
CPT/HCPCS: 99204

== ENCOUNTER 2024-05-04 08:49 | Outpatient (AMB) | payer BC, SELFPAY ==
[2024-05-04 08:57] VITALS: BP 140/72; PULSE 80; O2SAT 97; BMI 31.5
--- NOTE | 2024-05-04 08:57 | A.OFFVIS_ITS ---
Vital Signs 05/04/24 08:57 Height 5 ft 5 in Weight 189 lb 2.506 oz BMI 31.5 BP 140/72 H Blood Pressure Location Rt brachial Position Sitting Pulse 80 Pulse Source Pulse Oximeter Pulse Oximetry (%) 97 Oxygen Delivery Method Room Air Intake Visit Reasons: Colonoscopy screening Intake Note: Adán presents in office today for a scheduled colo consult. CC; According to the chart, this should be the pt's initial colo with routine priority. Pt denies any sx or concerns at this time that would otherwise warrant colo. Pt reports only pertinent family hx related to his father (GERD). Psychologists Required: No Allergies No Known Allergies Allergy (Verified 05/04/24 08:58) HPI HPI Colonoscopy screening: Details: 59 year old? male here today for pre colonoscopy screening.? Patient was sent to us by his PCP.? This is his first colonoscopy screening.? Patient denies any gastrointestinal symptoms in the past or at present.? Denies any personal or family history of gastrointestinal disease, colon polyps, or CRC.? Denies history of difficulty with sedation or anesthesia in the past.? Negative for history of sleep apnea.? Denies any history of cardiac, renal, pulmonary, or hepatic disease.?? No history of infectious? diseases like hepatitis A, B, C, HIV or tuberculosis.? 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 Current occupational exposures/hazards: No Cognitive needs: No Hearing needs: No Vision needs: Yes Review of Systems Const Denies weight gain and Denies weight loss ENT Reports no additional complaints, Denies dysphagia and Denies odynophagia Card Reports no additional complaints Resp Reports no additional complaints GI Denies abdominal pain, Denies belching, Denies melena, Denies bloating, Denies change in bowel habits, Denies dysphagia, Denies excessive flatus, Denies dyspepsia, Denies heartburn, Denies diarrhea, Denies loose stools, Denies nausea, Denies odynophagia and Denies vomiting Reports no additional complaints Musc Reports no additional complaints Neuro Reports no additional complaints Psych Reports no additional complaints Endo Reports no additional complaints Physical Exam Vital Signs: BMI result Body Mass Index 31.5 Const General: healthy appearing, no acute distress and well developed Nutritional Appearance: obese Orientation/consciousness: patient oriented x3 Resp Effort & Inspection: normal respiratory effort, able to speak in complete sentences, no tracheal deviation and symmetric chest movement Auscultation: clear to auscultation bilaterally Cardio Rate: regular rate GI Inspection: Yes normal to inspection, No distended and Yes obesity Palpation (GI): Soft to palpation, not firm, nontender and No hepatosplenomegaly present Auscultation: normal bowel sounds General: Yes no CVA tenderness Back/Spine/Pelvis Back: no CVA tenderness Skin General skin exam: elasticity normal, turgor normal and dry skin Neuro General: patient oriented x3 Psych Appearance: grossly normal Mental Status: mental status grossly normal Assessment & Plan Assessment & Plan (1) Colon cancer screening: Code(s): Z12.11 - Encounter for screening for malignant neoplasm of colon Category: Medical Plan Patient denies any GI, cardiac or respiratory symptoms.? Denies any issues with anesthesia in the past.? Denies any history of sleep apnea.? No history infectious diseases in the past or present.? Not on any anticoagulation therapy.? No family or personal history of colon cancer or polyps.? Patient denies melena, hematochezia, unintentional weight loss or ribbon like stools.? Discussed at length the pre-procedure,? prep, diet & medications as well as what to expect prior, during and after the procedure.?? Stressed the importance of good bowel prep.? Recommended the use of Vaseline or Calmoseptine OTC & baby wipes with bowel movements to promote comfort.? ?Patient verbalizes understanding and agrees to plan of care.? He was given the opportunity to ask questions and all questions answered.? We will see him after the procedure.? Medications: New polyethylene glycol 3350 (Miralax) As directed by gastroenterology department at [facility] 238 grams PO ONCE 238 grams 0RF Z12.11 - Encounter for screening for malignant neoplasm of colon bisacodyl (Dulcolax (bisacodyl)) take 4 tabs at noon the day before your colonoscopy 20 mg (4 x 5 mg) PO ONCE 1 day 4 tabs 0RF Z12.11 - Encounter for screening for malignant neoplasm of colon Coding Level of Care Code New Pt Level 3 (62603) Diagnoses Colon cancer screening Z12.11 Time Spent (min) 40 Comment 30 minutes spent with patient and additional 10 minutes spent reviewing his records
== END 2024-05-04 09:40 | disposition home or self-care (01) ==
PROVIDERS: PCP Nurse Practitioner Family; Visit Provider Nurse Practitioner Family
DX: Z01.818 Encounter for other preprocedural examination (principal); Z12.11 Encounter for screening for malignant neoplasm of colon
CPT/HCPCS: S0285

== ENCOUNTER → 2024-05-04 08:49 | Outpatient (BNVA) | payer BC, SELFPAY | PROVIDERS: PCP Nurse Practitioner Family; Visit Provider Nurse Practitioner Family ==

== ENCOUNTER 2024-10-09 09:04 | Day surgery (SDC) | payer BC, SELFPAY ==
[2024-10-05 13:04] VITALS: BMI 31.4
--- NOTE | 2024-10-06 12:47 | P.CONAN_ITS ---
Documented by User: Cathy Cedeno NP 10/06/24 12:47 HPI - Anesthesia Eval Consult details Narrative: 59yo M for Colonoscopy PMFSH Active Problems Active Problems: All Active Problems Thrombocytopenia (Acute) Low HDL (under 40) (Acute) Elevated fasting glucose (Acute) Vaccine counseling (Acute) Colon cancer screening (Acute) Urinary hesitancy (Acute) Urinary urgency (Acute) Normal physical examination, routine (Acute) Laboratory tests ordered as part of a complete physical exam (CPE) (Acute) Past Medical History Medical History Rosacea Hernia, inguinal Family History Family History Paternal Grandfather Alcohol abuse Surgical History Surgical History History of hernia surgery Social History Social History Housing: Apartment Patient Tobacco Use Status: Never used Tobacco e-Cigarette/Vaping Use: Never Used Second Hand Smoke Exposure: No Use of substances other than those prescribed or required for medical reasons: No Have you been hit, kicked, punched, or otherwise hurt by someone within the past year? 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 Current occupational exposures/hazards: No Cognitive needs: No Hearing needs: No Vision needs: Yes Meds Allergies Allergy/AdvReac Type Severity Reaction Status Date / Time No Known Allergies Allergy Verified 05/04/24 08:58 Exam Height,Weight and Vital Signs: Height 5 ft 5 in Weight 85.729 kg Assessment and Plan Assessment Anesthesia Assessment: Chart Reviewed Documented by User: Skye Mallory MD 10/09/24 10:42 PMF Past Medical History Medical History Rosacea Hernia, inguinal Family History Family History Paternal Grandfather Alcohol abuse Surgical History Surgical History History of hernia surgery History of Problems with Anesthesia: No Social History Social History Housing: Apartment Patient Tobacco Use Status: Never used Tobacco e-Cigarette/Vaping Use: Never Used Second Hand Smoke Exposure: No Use of substances other than those prescribed or required for medical reasons: No Have you been hit, kicked, punched, or otherwise hurt by someone within the past year? 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 Current occupational exposures/hazards: No Cognitive needs: No Hearing needs: No Vision needs: Yes Meds Allergies Allergy/AdvReac Type Severity Reaction Status Date / Time No Known Allergies Allergy Verified 05/04/24 08:58 Exam Airway Mallampati Class: III TM Dist: >3cm Neck ROM: Full Loose/Missing/Broken Teeth: No Heart: RRR Lungs: CTA Assessment and Plan Assessment Anesthesia Assessment: Anesthesia Plan Discussed Final Anesthetic Review History of Problems with Anesthesia: No NPO: Yes ASA Class: II Final Preanesthetic Review: Meds/Allgs Chart Reviewed, Consent Obtained/Reviewed and Anes Risks/Benef Reviewed Patient Risk: Low Procedure Risk: Low Anesthetic Plan Anesthetic Plan: MAC: Disposition: Standard PACU
--- NOTE | 2024-10-09 09:47 | MHC.SHP ---
Pre-Procedural Eval Section A - 24 Hr Update-Section A only Date of Service: 10/09/24 The patient is an INPATIENT: No The patient has been examined within 24 hours of the surgical procedure. The History & Physical has been completed within 30 days and I have reviewed it.: No Section B - Complete if H&P > 30 days Chief Complaint: Colon cancer screening Relevant Family History (Specify if Yes): No Relevant Social History: None Present Medications: see Short Stay Collaborative assessment Medical History: Significant History (Rosacea Hernia, inguinal) History of Previous Operations: Relevant previous surgery/procedure and date(s) (History of hernia surgery) Allergies: Allergies Allergy/AdvReac Type Severity Reaction Status Date / Time No Known Allergies Allergy Verified 05/04/24 08:58 Review of Systems Sugical H&P ROS: Negative: Constitution, Cardiovascular, Respiratory and Gastrointestinal Exam Surgical H&P Exam: Normal: Heart, Normal: Lungs, Normal: Extremities and Normal: Abdomen Plan Diagnosis/Plan: Unchanged I have reviewed the history and physical and performed a pertinent physical examination on my patient. No changes have occurred unless specified. Time Spent With Patient Time: Total time managing care of this patient today ____ minutes.
[2024-10-09 10:18] VITALS: BP 173/80; PULSE 72; RESP 18; TEMP 36.5; O2SAT 94
[2024-10-09] MEDS: Lactated Ringers 1,000 ML 100 ML IVCONT (10:19)
[2024-10-09 12:30] VITALS: BP 117/55; PULSE 71; RESP 18; TEMP 36.6; O2SAT 95
--- NOTE | 2024-10-09 12:30 | HO.OPN-COLON ---
Colonoscopy Operative Note Operative Note Date of Service: 10/09/24 Narrative: COLONOSCOPY TILL CECUM Pre-op diagnosis: Colon cancer screening (First colon). Post-op diagnosis:? Diverticulosis, hemorrhoids Endoscopist:? Franko Steve MD Anesthesia:?MAC Consent: Indications for the procedure and potential complications of bleeding, perforation, reaction to medications and missed diagnosis were discussed with the patient and informed consent was obtained. Instrument: Olympus PCF H 190 L variable stiffness pediatric colonoscope Monitoring: Vital signs and clinical assessment, intermittent blood pressure monitoring, continuous EKG monitoring, Pulse oximetry and Carbon Dioxide monitoring were done throughout the procedure. Please see anesthesia flowsheet. Colon withdrawl time was 16 minutes. Procedure: The patient was placed in the left lateral decubitis position and pre-procedure medications were administered. After a digital rectal examination of the ano-rectum, the video colonoscope was inserted into the rectum and advanced through the colon to the cecum. The colonoscope was slowly withdrawn in a retrograde panoramic fashion and the colon mucosa was carefully examined including a retroflexed view of the rectum. Findings and interventions are described below. Procedure Difficulty: without difficulty Findings: Terminal Ileum: Not evaluated Cecum: Normal Ascending Colon: Normal Transverse Colon: Normal Descending Colon: Normal Sigmoid Colon: Moderate diverticulosis Rectum: Normal Ano-rectum: Moderate internal hemorrhoids Colon preparation: Good after copious irrigation. [place] Bowel Preparation Scale Right colon; 2 Transverse colon: 2 Left colon; 2 (0 = Unprepared colon segment with mucosa not seen due to solid stool that cannot be cleared. 1 = Portion of mucosa of the colon segment seen, but other areas of the colon segment not well seen due to staining, residual stool and/or opaque liquid. 2 = Minor amount of residual staining, small fragments of stool and/or opaque liquid, but mucosa of colon segment seen well. 3 = Entire mucosa of colon segment seen well with no residual staining, small fragments of stool or opaque liquid) Impression and Post Procedure Diagnosis: Colonoscopy Findings: No polyps were detected. Moderate diverticulosis seen in the sigmoid colon Moderate hemorrhoids on retroflexed exam. Plan: Pt has a FU appointment on 10/23/24 with Carrol Keane NP Repeat Colonoscopy in 10 years (earlier if pt notes a change in bowel habits or rectal bleeding). A summary of the colonoscopy findings and relevant handouts were given to the patient in the discharge area. Patient was placed on the colonoscopy recall list for repeat colonoscopy in 10 years.
[2024-10-09 12:45] VITALS: BP 132/68; PULSE 72; RESP 18; O2SAT 94
[2024-10-09 13:00] VITALS: BP 138/92; PULSE 67; RESP 16; TEMP 36.2; O2SAT 95
== END 2024-10-09 13:17 | disposition home or self-care (01) ==
PROVIDERS: PCP Nurse Practitioner Family; Visit Provider Internal Medicine Gastroenterology
PROC: 0DJD8ZZ Inspection of Lower Intestinal Tract, Via Natural or Artificial Opening Endoscopic (ICD-10-PCS; CPT 45378; principal; 2024-10-09 11:20)
DX: Z12.11 Encounter for screening for malignant neoplasm of colon (principal); K57.30 Diverticulosis of large intestine without perforation or abscess without bleeding; K64.8 Other hemorrhoids; L71.9 Rosacea, unspecified; Z98.890 Other specified postprocedural states
CPT/HCPCS: 45378; J2003; J2704

== ENCOUNTER → 2024-10-09 09:04 | Outpatient (BNV) | payer BC, SELFPAY | PROVIDERS: PCP Nurse Practitioner Family; Visit Provider Internal Medicine Gastroenterology | DX: Z12.11 Encounter for screening for malignant neoplasm of colon (principal); K57.30 Diverticulosis of large intestine without perforation or abscess without bleeding; K64.8 Other hemorrhoids | CPT/HCPCS: 45378 ==

== ENCOUNTER 2024-10-23 11:24 | Outpatient (AMB) | payer BC, SELFPAY ==
--- NOTE | 2024-10-23 11:31 | MHC.OFFVIS ---
Vital Signs 10/23/24 11:32 Height 5 ft 5 in Weight 190 lb BMI 31.6 BP 146/72 H Blood Pressure Location Lt brachial Position Sitting Pulse 82 Pulse Oximetry (%) 96 Oxygen Delivery Method Room Air Intake Visit Reasons: s/p colon Intake Note: Patient follow up for Colonoscopy results. Patient denies any GI issues for today visit. Host Required: No Accompanied by: Self / Same As Patient Allergies No Known Allergies Allergy (Verified 05/04/24 08:58) HPI HPI s/p colon: Details: LAST VISIT: Colon cancer screening Plan Patient denies any GI, cardiac or respiratory symptoms.? Denies any issues with anesthesia in the past.? Denies any history of sleep apnea.? No history infectious diseases in the past or present.? Not on any anticoagulation therapy.? No family or personal history of colon cancer or polyps.? Patient denies melena, hematochezia, unintentional weight loss or ribbon like stools.? Discussed at length the pre-procedure,? prep, diet & medications as well as what to expect prior, during and after the procedure.?? Stressed the importance of good bowel prep.? Recommended the use of Vaseline or Calmoseptine OTC & baby wipes with bowel movements to promote comfort.? ?Patient verbalizes understanding and agrees to plan of care.? He was given the opportunity to ask questions and all questions answered.? We will see him after the procedure.? Medications New polyethylene glycol 3350 (Miralax) As directed by gastroenterology department at [facility] 238 grams PO ONCE 238 grams 0RF Z12.11 bisacodyl (Dulcolax (bisacodyl)) take 4 tabs at noon the day before your colonoscopy 20 mg (4 x 5 mg) PO ONCE 1 day 4 tabs 0RF Z12.11 COLONOSCOPY: Findings: Terminal Ileum: Not evaluated Cecum: Normal Ascending Colon: Normal Transverse Colon: Normal Descending Colon: Normal Sigmoid Colon: Moderate diverticulosis Rectum: Normal Ano-rectum: Moderate internal hemorrhoids Colon preparation: Good after copious irrigation. Micro Bowel Preparation Scale Right colon; 2 Transverse colon: 2 Left colon; 2 (0 = Unprepared colon segment with mucosa not seen due to solid stool that cannot be cleared. 1 = Portion of mucosa of the colon segment seen, but other areas of the colon segment not well seen due to staining, residual stool and/or opaque liquid. 2 = Minor amount of residual staining, small fragments of stool and/or opaque liquid, but mucosa of colon segment seen well. 3 = Entire mucosa of colon segment seen well with no residual staining, small fragments of stool or opaque liquid) Impression and Post Procedure Diagnosis: Colonoscopy Findings: No polyps were detected. Moderate diverticulosis seen in the sigmoid colon Moderate hemorrhoids on retroflexed exam. Plan: Pt has a FU appointment on 10/23/24 with Carrol Kenae NP Repeat Colonoscopy in 10 years (earlier if pt notes a change in bowel habits or rectal bleeding). TODAY'S VISIT Patient is here today for follow-up and to discuss colonoscopy results. Patient denies any ill effects from the prep, anesthesia procedures fell. Reports to be feeling well. Normal colonoscopy and repeat colo recommended in 10 years unless patient will have a change in bowel habits or rectal bleeding. Patient denies any family history of CRC. Currently has no GI concerning symptoms, occasional reflux is controlled with diet. Patient is trying to avoid dietary triggers. 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 Current occupational exposures/hazards: No Cognitive needs: No Hearing needs: No Vision needs: Yes Physical Exam Vital Signs: Last Vital Signs Pulse 82 10/23/24 11:32 BP 146/72 H 10/23/24 11:32 Pulse Ox 96 10/23/24 11:32 Oxygen Delivery Method Room Air 10/23/24 11:32 BMI result Body Mass Index 31.6 Assessment & Plan Assessment & Plan (1) Diverticulosis: Code(s): K57.90 - Diverticulosis of intestine, part unspecified, without perforation or abscess without bleeding Category: Medical (2) Internal hemorrhoids without complication: Code(s): K64.8 - Other hemorrhoids Category: Medical (3) Status post colonoscopy: Code(s): Z98.890 - Other specified postprocedural states Plan Normal colonoscopy except for diverticulosis. Discussed with patient high-fiber diet. List of food high in fiber given to patient. Patient will follow-up in our office as needed. Colonoscopy in 10 years, sooner if clinically necessary. Patient is agreeable to current plan of care and verbalizes understanding of instructions. He was given the opportunity to ask questions and all questions answered. Thank you for allowing me to participate in his care Coding Level of Care Code Est Pt Level 3 (98948) Diagnoses Diverticulosis K57.90 Internal hemorrhoids without complication K64.8 Status post colonoscopy Z98.890 Time Spent (min) 25 Comment 15 minutes spent with patient and additional 10 minutes spent reviewing his records
[2024-10-23 11:32] VITALS: BP 146/72; PULSE 82; O2SAT 96; BMI 31.6
== END 2024-10-23 14:46 | disposition home or self-care (01) ==
LOC: HO.HGI 11:24
PROVIDERS: PCP Nurse Practitioner Family; Visit Provider Nurse Practitioner Family
DX: K57.90 Diverticulosis of intestine, part unspecified, without perforation or abscess without bleeding (principal); K64.8 Other hemorrhoids; Z98.890 Other specified postprocedural states
CPT/HCPCS: 99213